=== PATIENT | male | born 1990 | race Caucasian/White ===

== ENCOUNTER 2025-10-04 18:20 | Emergency (ER) | payer SELFPAY ==
[2025-10-04 18:20] VITALS: BMI 32.1
[2025-10-04 18:30] VITALS: BP 144/80
[2025-10-04 19:04] LABS: Hematocrit 43.8 % (39.0-52.0); Hemoglobin 15.1 g/dL (13.0-18.0); Mean Corp Hgb Conc. 34.5 g/dL (33.0-37.0); Mean Corpuscular Volume 84.4 fL (80.0-94.0); Nucleated Red Blood Cells % 0 % (-); Platelet Count 210 10^3/uL (130-400); Red Cell Dist. Width 11.9 % (11.5-14.5)
[2025-10-04 19:29] LABS: Blood Urea Nitrogen 17 mg/dl (9-20); Calcium 9.2 mg/dl (8.4-10.2); Carbon Dioxide 26 mmol/L (22-30); Chloride 103 mmol/L (98-107); Glucose 92 mg/dl (70-99); Sodium 137 mmol/L (135-145); eGFR > 60.00
[2025-10-04 19:51] LABS: COVID-19 Antigen Negative (Negative)
[2025-10-04 20:07] VITALS: BP 131/73
--- NOTE | 2025-10-04 20:19 | ED.GENMED ---
History of Present Illness
<James Peacock MD - Last Filed: 10/04/25 22:58>
General
Chief Complaint: Chest Pain
Time Seen by Provider: 10/04/25 20:08
History of Present Illness
History of Present Illness:
Patient is a 35-year-old male who is otherwise healthy presenting to the emergency department with cough and chest pain. States for the past 2 days has been having cough congestion. His son was sick with similar symptoms. Today at dinner he
developed some chest discomfort. He did get some pain down the left arm. He came in for further evaluation. No family history of cardiac disease. No personal history of high blood pressure high cholesterol. He is a non-smoker. No shortness of
breath. No numbness tingling. No weakness. No back pain.
Phy Exam
<James Peacock MD - Last Filed: 10/04/25 22:58>
Physical Exam
Physical Exam:
GENERAL: in no acute distress
HEENT: normocephalic, extraocular movements intact, moist oral mucosa
NECK: normal inspection
RESPIRATORY: no respiratory distress, clear to auscultation bilaterally
CARDIOVASCULAR: regular rate and rhythm, 2+ radial pulse
ABDOMEN/: soft, non-distended, non-tender to palpation, no rebound or guarding
EXTREMITIES: non-tender, no edema/swelling
NEUROLOGIC: awake and alert, moves all extremities
SKIN: warm
Scores
<Darnell Weathers DO - Last Filed: 10/05/25 06:43>
Heart Score for Chest Pain Patients
STEMI patient?: Not applicable
Course
<James Peacock MD - Last Filed: 10/04/25 22:58>
Orders/Labs/Results
Orders:
Orders
10/04/25 18:22
Electrocardiogram (*1) Urgent
Reason for Study: Other
Other Reason for Exam: left arm pain
EKG- Treatment ONCE
10/04/25 18:39
Basic Metabolic Panel Urgent
COVID-19 Antigen Urgent
Source: Nasal Swab
Complete Blood Count/With Diff Urgent
Influenza A+B Rapid Molecular Urgent
DENA Source: Nasal Swab
Specimen Description:
10/04/25 20:08
CR Chest - 2 Views Urgent
Comment:
Reason For Exam: cough
10/04/25 21:50
Troponin I Urgent
10/05/25 00:54
Troponin I Urgent
Abnormal Lab Results
10/04/25
18:39
WBC 12.3 H 10^3/uL
(4.8-10.8)
Absolute Neuts (auto) 9.8 H 10^3/uL
(1.4-6.5)
Absolute Monos (auto) 0.8 H 10^3/uL
(0.1-0.6)
Neutrophils % 79.8 H %
(42.2-75.2)
Lymphocytes % 12.2 L %
(20.5-51.1)
10/04/25 18:39
10/04/25 18:39
Vital Signs
Initial and Last Documented VS:
Initial Vital Signs
Temp Pulse Resp BP Pulse Ox
98.5 F 93 18 144/80 98
10/04/25 18:30 10/04/25 18:30 10/04/25 18:30 10/04/25 18:30 10/04/25 18:30
Last Documented Vital Signs
Temp Pulse Resp BP Pulse Ox
98.2 F 81 14 126/80 100
10/04/25 23:15 10/05/25 01:50 10/05/25 01:50 10/05/25 01:50 10/05/25 01:50
<Darnell Weathers, - Last Filed: 10/05/25 06:43>
Orders/Labs/Results
Orders:
Orders
10/04/25 18:22
Electrocardiogram (*1) Urgent
Reason for Study: Other
Other Reason for Exam: left arm pain
EKG- Treatment ONCE
10/04/25 18:39
Basic Metabolic Panel Urgent
COVID-19 Antigen Urgent
Source: Nasal Swab
Complete Blood Count/With Diff Urgent
Influenza A+B Rapid Molecular Urgent
DENA Source: Nasal Swab
Specimen Description:
10/04/25 20:08
CR Chest - 2 Views Urgent
Comment:
Reason For Exam: cough
10/04/25 21:50
Troponin I Urgent
10/05/25 00:54
Troponin I Urgent
Abnormal Lab Results
10/04/25
18:39
WBC 12.3 H 10^3/uL
(4.8-10.8)
Absolute Neuts (auto) 9.8 H 10^3/uL
(1.4-6.5)
Absolute Monos (auto) 0.8 H 10^3/uL
(0.1-0.6)
Neutrophils % 79.8 H %
(42.2-75.2)
Lymphocytes % 12.2 L %
(20.5-51.1)
10/04/25 18:39
10/04/25 18:39
Vital Signs
Initial and Last Documented VS:
Initial Vital Signs
Temp Pulse Resp BP Pulse Ox
98.5 F 93 18 144/80 98
10/04/25 18:30 10/04/25 18:30 10/04/25 18:30 10/04/25 18:30 10/04/25 18:30
Last Documented Vital Signs
Temp Pulse Resp BP Pulse Ox
98.2 F 81 14 126/80 100
10/04/25 23:15 10/05/25 01:50 10/05/25 01:50 10/05/25 01:50 10/05/25 01:50
<James Peacock MD - Last Filed: 10/04/25 22:58>
MDM/Problems Addressed
Differential Diagnosis Includes:
Patient is a 35-year-old presenting to the emergency department with cough for the past few days and chest discomfort today. He is pain-free now. On arrival vitals unremarkable and exam is reassuring. Differential consists of pneumonia versus
viral illness. Considered ACS though less likely as patient really has no risk factors. After lengthy discussion we will proceed with troponin at patient's request. EKG per my interpretation normal sinus rhythm. Will obtain chest x-ray. COVID
flu negative
<James Peacock MD - Last Filed: 10/04/25 22:58>
*Pulse Oximetry
SaO2: 98
Oxygen Mode of Delivery: Room air
<Darnell Weathers DO - Last Filed: 10/05/25 06:43>
*Pulse Oximetry
Patient hypoxic: not evaluated
*Critical Care Note
Total Time (30-74mins, 75-104mins- exclusive of procedures): Not Applicable
<James Peacock MD - Last Filed: 10/04/25 22:58>
Update Note
Update Note:
Initial troponin negative. Chest x-ray per my interpretation with no acute abnormality. Will obtain delta troponin. Patient signed out to oncoming attending pending delta troponin. Patient has been pain-free so anticipate discharge if troponin
is normal.
ED Attending Note
<James Peacock MD - Last Filed: 10/04/25 22:58>
-
Portions of this chart may have been created with voice recognition software.� Occasional wrong word or��sound alike� substitutions may have occurred due to the inherent limitations of voice recognition software.
Discharge Plan
Departure
Patient Disposition: Home (Routine Discharge)
Date of Disposition: 10/05/25
Time of Disposition: 01:41
Patient with high blood pressure during this ER visit?: No
Discharge Problem:
Chest pain
Instructions: Chest Pain PCP Follow Up
Referrals:
NONE,* [Family Provider, Internal Medicine]
Activity Restrictions/Additional Instructions:
You were evaluated in the Emergency Department today for chest pain. Your evaluation has shown no signs of medical conditions requiring emergent intervention at this time, however we recommend that you follow up with your primary care physician or
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
Please schedule an appointment for follow up with your primary care physician as soon as possible.
Return to the Emergency Department if you experience worsening or uncontrolled chest pain, shortness of breath, light headedness, feeling faint, nausea, vomiting, or any other concerning symptoms.
Thank you for choosing us for your care.
Interventions
Interventions:
*General Assessment Last Done: 10/04/25 20:08
*Neglect/Abuse Screening Last Done: 10/04/25 20:08
*ED COVID-19 Vaccine History Last Done: 10/04/25 20:08
*ED Influenza Vaccine History Last Done: 10/04/25 20:08
[facility] Risk Assessment Tool Last Done: 10/04/25 18:20
*Risk Screen - Suicide (C-SSRS) Last Done: 10/04/25 18:30
*Nursing Disposition Last Done: 10/05/25 01:50
ED- Cardiac Assessment Last Done: 10/04/25 20:20
Discharge Date and Time
Discharge Date/Time: 10/05/25 01:54
Print Language: MOROCC[place]
[2025-10-04 22:25] LABS: Troponin I < 0.012 ng/ml
[2025-10-04 23:15] VITALS: BP 120/84
[2025-10-05 01:38] LABS: Troponin I < 0.012 ng/ml
[2025-10-05 01:50] VITALS: BP 126/80
== END 2025-10-05 01:54 | disposition home or self-care (01) ==
LOC: EMR 18:20
PROVIDERS: EMERGENCY PHYSICIAN Student in an Organized Health Care Education/Training Program
DX: R07.89 Other chest pain (principal); Z11.52 Encounter for screening for COVID-19
CPT/HCPCS: 99285; 71046; 80048; 84484; 85025; 87502; 87811; 93005